=== PATIENT | male | born 1965 | race Hispanic/Latino ===

== ENCOUNTER → 2019-12-29 10:14 | Outpatient (CLI) | payer OTHER, SELFPAY ==
--- NOTE | ~2019-12-29 | MR_ITS ---
EXAMINATION: MR cervical spine wo con EXAM DATE: 12/29/2019 10:52 INDICATION: Neck pain, right shoulder pain, right hand numbness. TECHNIQUE: Multi-sequential, multiplanar MR images of the cervical spine were obtained without contra st. Axial T2, axial T2 MERGE sequence. Sagittal T1, T2, T2 fat saturation images also obtained. Th ere is no prior study for comparison. FINDINGS: There is mild to moderate disc disease C4-C7. The vertebral bodies are aligned in the AP d imension. The spinal cord signal intensity and intrinsic morphology is normal. Cervicomedullary junct ion is normal in appearance. There are no suspicious marrow signal abnormalities. Paraspinal soft tis ayaan is unremarkable. Level by level evaluation: C2-C3: Disc does not extend beyond the endplate margin. Uncovertebral joint arthropathy: None. Facet joint arthropathy: Mild bilateral. Neural foraminal stenosis: No stenosis. Central canal stenosis: No stenosis. C3-C4: There is a minimal diffuse disc bulge. Uncovertebral joint arthropathy: Mild bilateral. Facet joint arthropathy: Moderate right, mild to moderate left. Neural foraminal stenosis: Mild bilateral. Central canal stenosis: No stenosis. C4-C5: There is a mild to moderate diffuse disc bulge. Uncovertebral joint arthropathy: Moderate bilateral. Facet joint arthropathy: Mild to moderate bilateral. Neural foraminal stenosis: Moderate to severe left, moderate right. Central canal stenosis: Mild to moderate . Central canal measures 6 mm in mid sagittal AP diameter . C5-C6: There is a mild to moderate diffuse disc bulge asymmetric to the right Uncovertebral joint arthropathy: Severe right, moderate to severe left. Facet joint arthropathy: Moderate bilateral. Neural foraminal stenosis: Severe right, moderate to severe left. Central canal stenosis: Mild to moderate . Central canal measures 6-7 mm in mid sagittal AP diameter . C6-C7: There is a mild to moderate diffuse disc bulge asymmetric to the right Uncovertebral joint arthropathy: Moderate to severe right, moderate left. Facet joint arthropathy: Moderate right, mild to moderate left. Neural foraminal stenosis: Severe right, moderate to severe left. Central canal stenosis: Mild. C7-T1: Disc does not extend beyond the endplate margin. Uncovertebral joint arthropathy: None. Facet joint arthropathy: Moderate left, mild right. Neural foraminal stenosis: Mild bilateral. Central canal stenosis: No stenosis. IMPRESSION: 1. Significant mid cervical neural foraminal stenosis. Reviewed, dictated and finalized at location A.
== END ==
PROVIDERS: PCP Physician Assistant; Visit Provider Physician Assistant
DX: M54.12 Radiculopathy, cervical region (principal); M75.101 Unspecified rotator cuff tear or rupture of right shoulder, not specified as traumatic
CPT/HCPCS: 72141

== ENCOUNTER 2020-09-01 06:53 | Outpatient (NON) | payer OTHER, SELFPAY ==
[2020-09-01 21:01] LABS: SARS-CoV-2 RNA PCR Negative
== END 2020-09-01 06:54 ==
LOC: ANHCOVIDDT 07:17
PROVIDERS: PCP Physician Assistant; Visit Provider Physician Assistant
DX: R05 Cough (principal); Z20.828 Contact with and (suspected) exposure to other viral communicable diseases
CPT/HCPCS: 87635; C9803; U0003

== ENCOUNTER 2021-01-25 15:08 | Outpatient (CLI) | payer OTHER, SELFPAY | END 2021-01-25 15:09 | disposition home or self-care (01) | LOC: ANHCOVIDVC 15:08 | PROVIDERS: PCP Physician Assistant | DX: Z23 Encounter for immunization (principal) | CPT/HCPCS: 0001A; 91300 ==

== ENCOUNTER 2021-02-15 15:22 | Outpatient (CLI) | payer OTHER, SELFPAY | END 2021-02-15 15:23 | disposition home or self-care (01) | LOC: ANHCOVIDVC 15:22 | PROVIDERS: PCP Physician Assistant | DX: Z23 Encounter for immunization (principal) | CPT/HCPCS: 0002A; 91300 ==

== ENCOUNTER 2021-04-03 10:30 | Emergency (ER) | payer OTHER, SELFPAY ==
[2021-04-03] VITALS (12 sets, daily range): BP systolic 125–159; BP diastolic 75–107; PULSE 76–93; RESP 15–22; TEMP 36.8; O2SAT 95–100
--- NOTE | ~2021-04-03 | XR_ITS ---
EXAMINATION: XR chest 2V DATE: 04/03/2021 11:01 INDICATION: Chest pain TECHNIQUE: PA and lateral views of the chest were obtained. COMPARISON: None FINDINGS: The lungs are clear with no focal airspace opacities, pulmonary edema, pleural effusion or pneumothor ax. The cardiomediastinal silhouette is normal. Moderate thoracic spondylosis. IMPRESSION: 1. No acute cardiopulmonary disease. Reviewed, dictated and finalized at location A.
--- NOTE | 2021-04-03 10:32 | ECG_ITS ---
Measurements Intervals [place] Rate: 91 P: 50 ID: 148 QRS: 31 QRSD: 93 T: 29 QT: 353 QTc: 435 Interpretive Statements SINUS RHYTHM BASELINE ARTIFACT- I, II, III, AVR, AVL, AVF NORMAL ECG Electronically Signed On 04-03-2021 12:26:37 CDT by Samuel Lopez D.O.
[2021-04-03 10:52] LABS: Basophils Absolute Auto 0.1 K/mm3 (0.0-0.1); Basophils Percent Auto 0.6 % (0.2-1.2); Eosinophils Absolute Auto 0.2 K/mm3 (0-0.3); Hematocrit 42.4 % (42.0-52.0); Hemoglobin 14.5 g/dL (14.0-18.0); Immature Granulocyte Absolute 0.02 K/mm3 (0.00-0.031); Immature Granulocyte Percent A 0.2 % (0-0.5); Lymphocytes Absolute Auto 1.98 K/mm3 (0.9-3.2); Lymphocytes Percent Auto 24.6 % (18.3-44.2); Mean Corpuscular HGB Conc 34.2 g/dl (32-36); Mean Corpuscular Hemoglobin 31.7 pg (26-34); Mean Corpuscular Volume 92.6 fl (80-100); Mean Platelet Volume 10.2 fl (7.4-10.4); Monocytes Absolute Auto 0.8 K/mm3 (0.1-0.6); Monocytes Percent Auto 9.9 % (2.6-8.5); Neutrophils Percent Auto 62.7 % (45.5-73.1); Platelet Count Result 197 k/mm3 (150-375); Red Blood Count 4.58 M/mm3 (4.6-6.20); Red Cell Distribution Width 11.9 % (11.5-14.5); White Blood Count 8.1 K/mm3 (4.5-10.0)
[2021-04-03 11:01] LABS: Anion Gap 9 mmol/L (8-16); Blood Urea Nitrogen 14 mg/dL (9-20); Carbon Dioxide 28 mmol/L (22-30); Chloride 102 mmol/L (98-107); Estimated CRCL calculation 154 ml/min; Estimated Glomerular Filt Rate > 60; Glucose 172 mg/dL (75-110); Potassium 3.6 mmol/L (3.4-5.0); Sodium 139 mmol/L (137-145)
[2021-04-03 11:02] LABS: INR 1.1; Prothrombin Time 14.6 Seconds (11.1-14.7)
[2021-04-03 11:05] LABS: Partial Thromboplastin Time 30.6 SECONDS (22.3-36.8)
[2021-04-03 11:13] LABS: Troponin I < 0.012 ng/mL (0.000-0.034)
[2021-04-03 11:53] LABS: Add Urine Microscopic? YES; Appearance Urine Clear (Clear); Bilirubin Urine Negative (Negative); Blood Urine Negative (Negative); Color Urine Straw (Yellow); Glucose Urine UA 1+ mg/dL (Negative); Ketones Urine Negative (Negative); Leukocyte Esterase Ur Negative LEU/UL (Negative); Nitrate Urine Negative (Negative); Protein Urine Negative (Negative); RBC Urine 0-2 /hpf (0-2); Specific Grav Ur 1.006 (1.001-1.035); Urobilinogen Urine Negative mg/dL (<2.0); WBC Urine 0-3 /hpf
--- NOTE | 2021-04-03 12:59 | ED.GENADULT ---
HPI - General Adult General Chief complaint: Chest Pain Stated complaint: chest pain, headache Time Seen by Provider: 04/03/21 12:18 Source: patient History of Present Illness HPI narrative: Patient is a 55 y/o male complaining of midsternal chest pain starting 3 hours ago. He describes his pain as sharp and pressure. He rates his pain as 3/10. There is no alleviating or exacerbating factor. He also has a headache. He states that he has been under a lot of stress lately. Related Data Allergies Allergy/AdvReac Type Severity Reaction Status Date / Time No Known Allergies Allergy Verified 04/03/21 11:33 Review of Systems Constitutional: Constitutional: Denies chills, Denies fever(s), Reports headache(s) and Denies weakness Eyes: Eyes: Denies blurry vision ENT: Reports headache(s) and Denies neck pain Cardiovascular: Cardiovascular: Reports chest pain and Denies dyspnea Respiratory: Respiratory: Denies cough and Denies dyspnea Gastrointestinal: Gastrointestinal: Denies abdominal pain, Denies diarrhea, Denies nausea and Denies vomiting Genitourinary: Genitourinary: Denies hematuria and Denies dysuria Musculoskeletal: Musculoskeletal: Denies back pain and Denies neck pain Neurologic: Reports headache(s) and Denies weakness PMFSH Family History Family History Mother Diabetes mellitus Hypertension Father Hypertension Sibling Hypertension Other Family history of elevated blood lipids Social History Social History Smoking status: Never smoker Alcohol intake: current Gender identity (if verbalized by the patient): Male Exam Const: General: no acute distress and well developed Orientation/consciousness: oriented to person, oriented to place, oriented to time and patient oriented x3 HENMT: Head: normocephalic Ears: external ears normal General nose exam: Normal external nose present Eyes: General: appearance normal, both eyes and all related structures Conjunctivae: conjunctivae normal Neck: Neck: normal visual inspection and full ROM Chest: Chest palpation & inspection: normal inspection of the chest and no tenderness Resp: Effort & Inspection: normal respiratory effort Auscultation: clear to auscultation bilaterally Cardio: Rate: regular rate Rhythm: regular rhythm GI: GI Palp: No abdominal tenderness and Yes Soft to palpation Skin: General skin exam: normal color and turgor normal Neuro: General: oriented to person, oriented to place, oriented to time and patient oriented x3 Cognition (Neuro): normal cognition Extrem: General: normal to inspection, full ROM and no pedal edema Psych: Appearance: grossly normal Mental Status: mental status grossly normal Affect: normal affect Course Reevaluation(s) Reevaluation #1: Rechecked. Patient feels well. He states that he does not have chest pain or headache at this time. He has appointment to see his doctor in 3 days. Offered patient possible admission for observation and further work up. However, patient prefers to wait to see his doctor for further evaluation. He is instructed to return if his symptoms worsen. Date: 04/03/21 Time: 14:55 Vital Signs Vital signs: Vital Signs Temperature 36.8 C 04/03/21 10:48 Pulse Rate 93 04/03/21 10:48 Respiratory Rate 18 04/03/21 10:48 Blood Pressure 158/104 H 04/03/21 10:48 Pulse Oximetry 97 04/03/21 10:48 Temperature 36.8 C 04/03/21 10:48 Pulse Rate 78 04/03/21 16:11 Respiratory Rate 16 04/03/21 16:11 Blood Pressure 125/75 04/03/21 16:11 Pulse Oximetry 95 04/03/21 16:11 Medical Decision Making Vital Signs Vital Signs: Vital Signs Temperature 36.8 C 04/03/21 10:48 Pulse Rate 93 04/03/21 10:48 Respiratory Rate 18 04/03/21 10:48 Blood Pressure 158/104 H 04/03/21 10:48 Pulse Oximetry 97 04/03/21 10:48 Temperature 36.8 C 04/03/21 10
[2021-04-03] MEDS: diphenhydrAMINE HCl INJ 50 MG/ML VIAL 25 MG IV PUSH (13:00)
[2021-04-03] MEDS: KETOROLAC 30 MG/ML VIAL (*BKC) IV PUSH (13:00)
[2021-04-03] MEDS: METOCLOPRAMIDE HCL INJ 10 MG/2 ML VIAL IV PUSH (13:00)
[2021-04-03] MEDS: SODIUM CHLORIDE 0.9% IV 1,000 ML 999 ML IV CONT (13:01)
[2021-04-03 14:45] LABS: Troponin I < 0.012 ng/mL (0.000-0.034)
== END 2021-04-03 16:12 | disposition home or self-care (01) ==
PROVIDERS: Emergency Medicine; Emergency Provider Emergency Medicine; PCP Physician Assistant
DX: R07.2 Precordial pain (principal); R51.9 Headache, unspecified
CPT/HCPCS: 36415; 71046; 80048; 81001; 84484; 85025; 85610; 85730; 93005; 96361; 96374; 96375; 99284; J1200; J1885; J2765; J7030

== ENCOUNTER 2021-04-07 12:13 | Outpatient (CLI) | payer OTHER, SELFPAY ==
[2021-04-07 12:53] LABS: Anion Gap 7 mmol/L (8-16); Blood Urea Nitrogen 16 mg/dL (9-20); Calcium 9.5 mg/dL (8.4-10.2); Carbon Dioxide 30 mmol/L (22-30); Chloride 103 mmol/L (98-107); Estimated Glomerular Filt Rate > 60; Glucose 114 mg/dL (75-110); Potassium 4.7 mmol/L (3.4-5.0); Sodium 140 mmol/L (137-145)
== END 2021-04-07 12:14 | disposition home or self-care (01) ==
PROVIDERS: PCP Physician Assistant; Referring Provider Physician Assistant; Visit Provider Internal Medicine Cardiovascular Disease
DX: R73.03 Prediabetes (principal); I10 Essential (primary) hypertension; E78.5 Hyperlipidemia, unspecified; Z12.5 Encounter for screening for malignant neoplasm of prostate; Z79.899 Other long term (current) drug therapy
CPT/HCPCS: 36415; 80048